=== PATIENT | female | born 1970 | race Caucasian/White ===

== ENCOUNTER 2020-07-27 18:24 | Emergency (ER) | payer OTHER ==
[~2020-07-27] VITALS: Ht 170.2 cm; Wt 92.7 kg
[2020-07-27] MEDS ORDERED: propofol 10mg/ml 20ml vial IV ONE (19:40)
[2020-07-27] MEDS ORDERED: ketamine 10mg/ml 20ml inj IV STA (21:12)
[2020-07-27] MEDS ORDERED: ketamine 50 mg/ml 10ml vial IV STA (21:17)
--- NOTE | 2020-07-27 21:40 | NUR ---
pt received 200 mg propfol and 100mcq of ketamine administered by
[2020-07-27] MEDS ORDERED: ondansetron/PF 4mg/2ml inj IV ONE (21:50)
[2020-07-27 22:34] VITALS: BP 114/62
== END 2020-07-27 23:14 | disposition home or self-care (01) ==
LOC: ER 18:24
DX: S53.105A Unspecified dislocation of left ulnohumeral joint, initial encounter (principal); X50.1XXA Overexertion from prolonged static or awkward postures, initial encounter; Y93.89 Activity, other specified; Y92.89 Other specified places as the place of occurrence of the external cause; Y99.8 Other external cause status; Z90.710 Acquired absence of both cervix and uterus; Z88.0 Allergy status to penicillin
CPT/HCPCS: 24600; 73070; 73080; 73660; 99285; J2405; 99152